=== PATIENT | female | born 1960 | race American Indian/Alaskan Native ===

== ENCOUNTER 2017-02-21 10:14 | Observation (INO) | payer MEDICARE, OTHER ==
[2017-02-21 10:14] VITALS: BMI 22.7
[2017-02-21 10:34] VITALS: RESP 18
[2017-02-21] MEDS ORDERED: Sodium Chloride 0.9% 1,000 ML IV ONE (10:39)
--- NOTE | 2017-02-21 10:39 | C.PDOC ---
History Of Present Illness A 57 year old female presents to the ER c/o general abdominal pain associated with loose, watery stool for 5 days. Patient notes the pain as cramping in nature that is intermittent. Patient reports having a fever for one day which self resolved. Patient took Imodium with no relief. Patient denies nausea, vomiting, dysuria, hematuria, vaginal bleeding or discharge. Time Seen by Provider: 02/21/17 10:31 Chief Complaint (Nursing): Abdominal Pain History Per: Patient History/Exam Limitations: no limitations Onset/Duration Of Symptoms: Days Current Symptoms Are (Timing): Still Present Severity: Mild Location Of Pain/Discomfort: Diffuse Radiation Of Pain To:: None Associated Symptoms: Fever (One day, self resolved.) Alleviating Factors: None Recent travel outside of the [place]: No Additional History Per: Patient Abnormal Vaginal Bleeding: No Past Medical History Reviewed: Historical Data, Nursing Documentation, Vital Signs Vital Signs: Last Vital Signs Temp 97.9 F 02/21/17 10:18 Pulse 75 02/21/17 10:18 Resp 18 02/21/17 10:18 BP 147/90 02/21/17 10:18 Pulse Ox 98 02/21/17 12:55 - Medical History PMH: Arthritis, HTN, Hypercholesterolemia, Hyperlipidemia Denies: Depression - [facility] Procedures INJECT/INFUSE ELECTROLYT (05/02/13) INJECT/INFUSE NEC (01/14/15) Family History: States: Unknown Family Hx - Social History Hx Tobacco Use: Yes Hx Alcohol Use: No Hx Substance Use: No - Immunization History Hx Tetanus Toxoid Vaccination: No Hx Influenza Vaccination: No Hx Pneumococcal Vaccination: No Review Of Systems Except As Marked, All Systems Reviewed And Found Negative. Constitutional: Positive for: Fever Gastrointestinal: Positive for: Abdominal Pain, Diarrhea (Loose, watery, non- bloody.). Negative for: Nausea, Vomiting Genitourinary: Negative for: Dysuria, Hematuria, Vaginal Discharge, Vaginal Bleeding Physical Exam - Physical Exam Appears: Well, Non-toxic, No Acute Distress, Other (Appears obese) Skin: Warm, Dry Head: Atraumatic, Normacephalic Eye(s): bilateral: Normal Inspection Cardiovascular: Rhythm Regular, No Murmur Respiratory: Normal Breath Sounds, No Rales, No Rhonchi, No Wheezing Gastrointestinal/Abdominal: Bowel Sounds (Active), Soft, No Tenderness (No focal tenderness), No Guarding, No Rebound Neurological/Psych: Oriented x3, Normal Speech, Normal Cognition ED Course And Treatment - Laboratory Results Result Diagrams: 02/21/17 10:45 02/21/17 10:45 O2 Sat by Pulse Oximetry: 98 (Room air) Pulse Ox Interpretation: Normal - CT Scan/US CT Abd/Pel w/ contrast Other Rad Studies (CT/US): Interpreted By Me, Read By Radiologist CT/US Interpretation: PROCEDURE: CT Abdomen and Pelvis with contrast. HISTORY : Abdominal pain and diarrhea for 5 days. COMPARISON: None. TECHNIQUE: Contrast dose: 100 cc Visipaque 320. Radiation dose: Total exam DLP = 1068.10 mGy-cm. This CT exam was performed using one or more of the following dose reduction techniques: Automated exposure control, adjustment of the mA and/or kV according to patient size, and/or use of iterative reconstruction technique. FINDINGS: LOWER THORAX: Unremarkable. LIVER: Unremarkable. No gross lesion or ductal dilatation. GALLBLADDER AND BILE DUCTS: Unremarkable. PANCREAS: Unremarkable. No gross lesion or ductal dilatation. SPLEEN: Unremarkable. ADRENALS: Unremarkable. No mass. KIDNEYS AND URETERS: Unremarkable. No hydronephrosis. No solid mass. VASCULATURE: Unremarkable. No aortic aneurysm. BOWEL: Thickening of the wall of the left hemicolon. This is diffuse/ mild. No focal abnormalities identified. Relative sparing of the right hemicolon. APPENDIX: Normal appendix. PERITONEUM: Unremarkable. No free fluid. No free air. LYMPH NODES: Unremarkable. No enlarged lymph nodes. BLADDER: Unremarkable. REPRODUCTIVE: Unremarkable. BONES: No acute fracture. OTHER FINDINGS: None. IMPRESSION: Mild colitis, confined to the left hemicolon Medical Decision Making Medical Decision Making: Impression: 57 y.o female with abdominal pain and diarrhea for 5 days Plan: * Labs * CT A/P * IV NS, Pepcid Progress: Patient appears nontoxic and in no acute distress. Will place on observation for abdominal pain and order CT to rule out obstruction or infectious etiology ED OBSERVATION Discharge: Yes Date of observation admission: 02/21/17 Time of observation admission: 10:39 - Observation admission statement Patient is being placed in observation because:: Abdominal pain - Goals of Observation Goals of observation are:: IV hydration, pain management, CT imaging - Progress Note Progress Note: 02/21/17 11:28 Labs reviewed, no leukocytosis shift or bands. Potassium mildly low, will order PO KCL 02/21/17 12:52 CT shows mild colitis, confined to left hemicolon. Case discussed with Dr Blackman who agrees patient has no fever, stable vital signs and appropriate for discharge with oral antibiotics. 02/21/17 12:58 Patient re-examined she is resting comfortably in no acute distress. at this time patient reports feeling better. I discussed results including lab and CT findings. Patient is agreeable to discharge home and will take oral antibiotics and follow up with PCP Dr Locke. Instruct to return for any worsening symptoms including fever, dehydration, bloody stools. Patient verbalized understanding. Disposition Counseled Patient/Family Regarding: Studies Performed, Diagnosis, Need For Followup, Rx Given - Disposition Disposition: HOME/ ROUTINE Disposition Time: 13:02 Condition: STABLE - POA Present On Arrival: None - Clinical Impression Clinical Impression: Colitis - Scribe Statement The provider has reviewed the documentation as recorded by the Carteribe Sonia scales All medical record entries made by the Carteribheather were at my direction and personally dictated by me. I have reviewed the chart and agree that the record accurately reflects my personal performance of the history, physical exam, medical decision making, and the department course for this patient. I have also personally directed, reviewed, and agree with the discharge instructions and disposition.
[2017-02-21] MEDS ORDERED: Sodium Chloride 0.9% 1,000 ML ONE (10:56)
[2017-02-21 11:00] LABS: BASO % 0.7 % (0.0-2.0); EOS # 0.1 K/uL (0.0-0.7); EOS % 2.1 % (0.0-4.0); HEMATOCRIT 39.6 % (34.0-47.0); LYMPH # 2.1 K/uL (1.0-4.3); LYMPH % 44.2 % (20.0-40.0); MEAN CELL VOLUME 83.3 fL (81.0-99.0); MEAN CORPUSCULAR HEMOGLOBIN 27.5 pg (27.0-31.0); MONO # 0.6 K/uL (0.0-0.8); MONO % 11.5 % (0.0-10.0); RED CELL DISTRIBUTION WIDTH 14.2 % (11.5-14.5); WHITE BLOOD COUNT 4.8 K/uL (4.8-10.8)
[2017-02-21 11:05] LABS: CHLORIDE 99 mmol/L (98-107)
[2017-02-21 11:06] LABS: POTASSIUM 3.4 mmol/L (3.6-5.2); SODIUM 136 mmol/L (132-148)
[2017-02-21 11:08] LABS: ALB/GLOB RATIO 1.3 (1.0-2.1); ALKALINE PHOSPHATASE 62 U/L (38-126); AST/SGOT 23 U/L (14-36); BILIRUBIN,TOTAL 0.7 mg/dL (0.2-1.3); CARBON DIOXIDE 28 mmol/L (22-30); GFR AFRICAN-AMERICAN > 60; TOTAL PROTEIN 7.3 g/dL (6.3-8.3)
[2017-02-21 11:09] LABS: ALT/SGPT 28 U/L (9-52); BLOOD UREA NITROGEN 18 mg/dL (7-17); CALCIUM 9.5 mg/dl (8.6-10.4); GLUCOSE,RANDOM 111 mg/dL (65-105)
[2017-02-21 11:10] LABS: RBC URINE < 1 /hpf (0-3); URINE BACTERIA RARE (<OCC); URINE BILIRUBIN NEGATIVE (NEGATIVE); URINE BLOOD NEGATIVE (NEGATIVE); URINE COLOR Straw (YELLOW); URINE GLUCOSE (UA) NORMAL (Normal); URINE KETONE NEGATIVE (NEGATIVE); URINE LEUKOCYTE ESTERASE NEG Leu/uL (Negative); URINE PROTEIN NEGATIVE (NEGATIVE); URINE UROBILINOGEN NORMAL mg/dL (0.2-1.0); WBC URINE < 1 /hpf (0-5)
[2017-02-21] MEDS ORDERED: Potassium Chloride 20 mEq ER Tab PO STA (11:29)
[2017-02-21] MEDS ORDERED: Iodixanol 320 mg/ml 150 ml Bottle IV ONE (11:36)
[2017-02-21] MEDS ORDERED: Potassium Chloride 20 mEq ER Tab PO ONE (12:31)
--- NOTE | 2017-02-21 12:49 | CT ---
PROCEDURE: CT Abdomen and Pelvis with contrast HISTORY: Abdominal pain and diarrhea for 5 days COMPARISON: None. TECHNIQUE: Contrast dose: 100 cc Visipaque 320. Radiation dose: Total exam DLP = 1068.10 mGy-cm. This CT exam was performed using one or more of the following dose reduction techniques: Automated exposure control, adjustment of the mA and/or kV according to patient size, and/or use of iterative reconstruction technique. FINDINGS: LOWER THORAX: Unremarkable. LIVER: Unremarkable. No gross lesion or ductal dilatation. GALLBLADDER AND BILE DUCTS: Unremarkable. PANCREAS: Unremarkable. No gross lesion or ductal dilatation. SPLEEN: Unremarkable. ADRENALS: Unremarkable. No mass. KIDNEYS AND URETERS: Unremarkable. No hydronephrosis. No solid mass. VASCULATURE: Unremarkable. No aortic aneurysm. BOWEL: Thickening of the wall of the left hemicolon. This is diffuse/ mild. No focal abnormalities identified. Relative sparing of the right hemicolon. APPENDIX: Normal appendix. PERITONEUM: Unremarkable. No free fluid. No free air. LYMPH NODES: Unremarkable. No enlarged lymph nodes. BLADDER: Unremarkable. REPRODUCTIVE: Unremarkable. BONES: No acute fracture. OTHER FINDINGS: None. IMPRESSION: Mild colitis, confined to the left hemicolon.
[2017-02-21 13:41] VITALS: BP 173/90; PULSE 78; TEMP 98.7
[2017-02-21 14:43] VITALS: O2SAT 98
== END 2017-02-21 13:02 | disposition home or self-care (01) ==
LOC: C.ER 10:14 → C.9OBSV 10:37
PROVIDERS: ADMIT Emergency Medicine; ATTEND Emergency Medicine
DX: K52.9 Noninfective gastroenteritis and colitis, unspecified (principal); Z87.891 Personal history of nicotine dependence; I10 Essential (primary) hypertension; E78.5 Hyperlipidemia, unspecified; R19.7 Diarrhea, unspecified
CPT/HCPCS: 74177; 80053; 81001; 83690; 85025; 96360; 96374; G0378; Q9965

== ENCOUNTER 2018-06-11 09:09 | Emergency (ER) | payer MEDICARE, MEDICAID ==
[2018-06-11 09:09] VITALS: BMI 42.4
[2018-06-11 09:21] VITALS: BP 138/90; PULSE 74; RESP 18; TEMP 97.9; O2SAT 98
--- NOTE | 2018-06-11 09:31 | C.PDOC ---
History Of Present Illness 58 y/o female presents to the ED complaining of chronic left shoulder pain. 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 Patient was already seen by PMD for the same complaint, and had a normal EKG. She was advised to take Motrin, and reports taking 800mg daily with minimal relief. Denies ice or heat therapy. Otherwise she denies any numbness, weakness, or tingling of extremities. Time Seen by Provider: 06/11/18 09:24 Chief Complaint (Nursing): Upper Extremity Problem/Injury History Per: Patient History/Exam Limitations: no limitations Onset/Duration Of Symptoms: Days Current Symptoms Are (Timing): Still Present Exacerbating Factor(s): Strenuous Use Of Affected Area Past Medical History Reviewed: Historical Data, Nursing Documentation, Vital Signs Vital Signs: Last Vital Signs Temp 97.9 F 06/11/18 09:17 Pulse 74 06/11/18 09:17 Resp 18 06/11/18 09:17 BP 138/90 06/11/18 09:17 Pulse Ox 98 06/11/18 09:31 - Medical History PMH: Arthritis, HTN, Hypercholesterolemia, Hyperlipidemia Denies: Depression - [facility] Procedures INJECT/INFUSE ELECTROLYT (05/02/13) INJECT/INFUSE NEC (01/14/15) Family History: States: Unknown Family Hx - Social History Hx Tobacco Use: Yes Hx Alcohol Use: No Hx Substance Use: No - Immunization History Hx Tetanus Toxoid Vaccination: No Hx Influenza Vaccination: No Hx Pneumococcal Vaccination: No Review Of Systems Except As Marked, All Systems Reviewed And Found Negative. Constitutional: Negative for: Fever Cardiovascular: Negative for: Chest Pain Respiratory: Negative for: Shortness of Breath Musculoskeletal: Positive for: Shoulder Pain Neurological: Negative for: Weakness, Numbness, Incoordination, Other ( paresthesias) Physical Exam - Physical Exam Appears: Non-toxic, No Acute Distress, Other (Morbidly obese female) Skin: Normal Color, Warm, Dry Head: Atraumatic, Normacephalic Eye(s): bilateral: Normal Inspection Neck: Normal ROM, Supple Chest: Symmetrical, No Tenderness Cardiovascular: Rhythm Regular Respiratory: No Accessory Muscle Use, Other (No acute respiratory distress) Extremity: Normal ROM (with no pain on ROM of left shoulder), No Tenderness (to the shoulder), Capillary Refill (less than 2 sec), No Deformity, No Swelling Pulses: Left Radial: Normal, Right Radial: Normal Neurological/Psych: Oriented x3, Normal Speech, Normal Motor, Normal Sensation ED Course And Treatment O2 Sat by Pulse Oximetry: 98 (RA) Pulse Ox Interpretation: Normal Medical Decision Making Medical Decision Making: Plan: --Motrin 600mg PO 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 Instructions: Shoulder Sprain (ED) Forms: [facility] (Yoruba) - Clinical Impression Clinical Impression: Sprain of shoulder, left - Scribe Statement The provider has reviewed the documentation as recorded by the Scribe (Thi Santana) Provider Attestation: All medical record entries made by the Scribe were at my direction and personally dictated by me. I have reviewed the chart and agree that the record accurately reflects my personal performance of the history, physical exam, medical decision making, and the department course for this patient. I have also personally directed, reviewed, and agree with the discharge instructions and disposition.
== END 2018-06-11 09:36 | disposition home or self-care (01) ==
LOC: C.ER 09:09
DX: S43.402A Unspecified sprain of left shoulder joint, initial encounter (principal); X58.XXXA Exposure to other specified factors, initial encounter

== ENCOUNTER 2018-12-19 10:14 | Emergency (ER) | payer MEDICARE, MEDICAID ==
[2018-12-19 10:14] VITALS: BMI 42.4
[2018-12-19 10:18] VITALS: TEMP 97.7
[2018-12-19] MEDS ORDERED: Sodium Chloride 0.9% 1,000 ML IV ONE (10:47)
[2018-12-19] MEDS ORDERED: Sodium Chloride 0.9% 1,000 ML ONE (10:56)
--- NOTE | 2018-12-19 11:09 | C.PDOC ---
History Of Present Illness 58 year old female presents to the ED for evaluation of abdominal pain for 1 day. States she awoke last night with a "gurgling" in her stomach, associated with gas, nausea, and vomiting. Patient also reports having diarrhea since Sat night, onset 1 hour after eating seafood. Denies any other sick contacts. Patient states at present she has only mild abdominal discomfort, which is improved. She notes her stool was soft this morning, no longer watery/runny. Patient did not try taking any OTC medication prior to this visit. Otherwise she denies any fever, chills, cough, chest pain, SOB, back pain, or urinary complaints. Time Seen by Provider: 12/19/18 10:38 Chief Complaint (Nursing): Abdominal Pain History Per: Patient History/Exam Limitations: no limitations Onset/Duration Of Symptoms: Days (x 1) Current Symptoms Are (Timing): Still Present Radiation Of Pain To:: None Quality Of Discomfort: "Pain" Associated Symptoms: Nausea, Vomiting, Diarrhea Past Medical History Reviewed: Historical Data, Nursing Documentation, Vital Signs Vital Signs: Last Vital Signs Temp 97.7 F 12/19/18 10:16 Pulse 76 12/19/18 10:16 Resp 20 12/19/18 10:16 BP 147/87 12/19/18 10:16 Pulse Ox 99 12/19/18 10:16 - Medical History PMH: Arthritis, HTN, Hypercholesterolemia, Hyperlipidemia Denies: Depression - [facility] Procedures INJECT/INFUSE ELECTROLYT (05/02/13) INJECT/INFUSE NEC (01/14/15) Family History: States: Unknown Family Hx - Social History Hx Tobacco Use: Yes Hx Alcohol Use: No Hx Substance Use: No - Immunization History Hx Tetanus Toxoid Vaccination: No Hx Influenza Vaccination: No Hx Pneumococcal Vaccination: No Review Of Systems Except As Marked, All Systems Reviewed And Found Negative. Constitutional: Negative for: Fever, Chills Cardiovascular: Negative for: Chest Pain, Palpitations Respiratory: Negative for: Shortness of Breath Gastrointestinal: Positive for: Nausea, Vomiting, Abdominal Pain. Negative for: Diarrhea (now resolved), Melena, Hematochezia Genitourinary: Negative for: Dysuria, Frequency Musculoskeletal: Negative for: Back Pain Neurological: Negative for: Weakness, Dizziness Physical Exam - Physical Exam Appears: Non-toxic, No Acute Distress Skin: Warm, Dry, No Rash Head: Atraumatic, Normacephalic Eye(s): bilateral: Normal Inspection Oral Mucosa: Moist Neck: Normal ROM Chest: Symmetrical Cardiovascular: Rhythm Regular, No Murmur Respiratory: Normal Breath Sounds, No Accessory Muscle Use Gastrointestinal/Abdominal: Bowel Sounds (+), Soft, No Tenderness, No Guarding, No Rebound Back: Normal Inspection, No CVA Tenderness Extremity: Bilateral: Atraumatic, Normal Color And Temperature, Normal ROM Neurological/Psych: Oriented x3, Normal Speech Gait: Steady ED Course And Treatment - Laboratory Results Result Diagrams: 12/19/18 11:07 12/19/18 11:07 O2 Sat by Pulse Oximetry: 99 (RA) Pulse Ox Interpretation: Normal Medical Decision Making Medical Decision Making: Impression: Abdominal Pain, Nausea, Vomiting Initial Plan: - CMP - CBC - UA - IV fluids - 20 mg IV Pepcid - 4 mg IV Zofran - Reassess Labs reviewed. Discussed with patient. Progress: On re-examination, patient is resting comfortably in no acute distress. Patient reports improvement of symptoms. Patient feels comfortable going home and will be discharged. Patient given follow up instructions. Instructed to return to ER if symptoms worsen or new symptoms arise. Disposition Counseled Patient/Family Regarding: Diagnosis, Need For Followup, Rx Given - Disposition Referrals: Silver Locke MD [Medical Doctor] - Disposition: HOME/ ROUTINE Disposition Time: 12:01 Condition: IMPROVED Additional Instructions: Give fluids to prevent dehydration. Take Zofran as prescribed. Try low-fat diet with increase in fluids such as sport drink, gelatin. Try soup, rice, bread, crackers, cereal, bananas to help with diarrhea. 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 - Scribe Statement The provider has reviewed the documentation as recorded by the Scribe Thi Max All medical record entries made by the Earnest were at my direction and personally dictated by me. I have reviewed the chart and agree that the record accurately reflects my personal performance of the history, physical exam, medical decision making, and the department course for this patient. I have also personally directed, reviewed, and agree with the discharge instructions and disposition.
[2018-12-19 11:20] LABS: BASO # 0.1 K/uL (0.0-0.2); BASO % 0.9 % (0.0-2.0); EOS # 0.1 K/uL (0.0-0.7); EOS % 0.9 % (0.0-4.0); HEMOGLOBIN 12.3 g/dL (11.0-16.0); LYMPH # 1.6 K/uL (1.0-4.3); LYMPH % 21.8 % (20.0-40.0); MEAN CELL VOLUME 84.6 fL (81.0-99.0); MEAN CORPUSCULAR HEMOGLOBIN 28.1 pg (27.0-31.0); MEAN CORPUSCULAR HGB CONC 33.2 g/dL (33.0-37.0); MONO # 0.7 K/uL (0.0-0.8); MONO % 9.5 % (0.0-10.0); NEUT # 4.8 K/uL (1.8-7.0); NEUT % 66.9 % (50.0-75.0); RBC 4.37 Mil/uL (3.80-5.20); RED CELL DISTRIBUTION WIDTH 14.5 % (11.5-14.5); WHITE BLOOD COUNT 7.1 K/uL (4.8-10.8)
[2018-12-19 11:38] LABS: ALB/GLOB RATIO 1.5 (1.0-2.1); ALBUMIN 4.3 g/dL (3.5-5.0); ALT/SGPT 8 U/L (9-52); AST/SGOT 22 U/L (14-36); BLOOD UREA NITROGEN 19 mg/dL (7-17); CALCIUM 10.3 mg/dl (8.6-10.4); GFR NON-AFRICAN AMERICAN > 60
[2018-12-19 11:40] LABS: SQUAMOUS EPITHIAL 9 /hpf (0-5); URINE BACTERIA OCC (<OCC); URINE BILIRUBIN NEGATIVE (NEGATIVE); URINE BLOOD NEGATIVE (NEGATIVE); URINE CLARITY Hazy (Clear); URINE COLOR Yellow (YELLOW); URINE GLUCOSE (UA) NORMAL (Normal); URINE LEUKOCYTE ESTERASE NEG Leu/uL (Negative); URINE PROTEIN 1+ mg/dL (NEGATIVE); URINE UROBILINOGEN NORMAL mg/dL (0.2-1.0)
[2018-12-19 12:39] VITALS: BP 127/79; PULSE 67; RESP 16
[2018-12-19 12:48] VITALS: O2SAT 99
== END 2018-12-19 12:39 | disposition home or self-care (01) ==
LOC: C.ER 10:14
DX: K52.9 Noninfective gastroenteritis and colitis, unspecified (principal); E78.00 Pure hypercholesterolemia, unspecified; I10 Essential (primary) hypertension; E78.5 Hyperlipidemia, unspecified; Z72.0 Tobacco use
CPT/HCPCS: 80053; 81001; 85025; 96361; 96374; 96375; 99284; J2405; J7030